=== PATIENT | female | born 1985 | race Caucasian/White ===

== ENCOUNTER 2017-01-07 18:21 | Emergency (ER) | payer OTHER ==
[~2017-01-07] VITALS: Ht 162.6 cm; Wt 63.9 kg
[~2017-01-07 18:21] MED LIST: ASCORBIC ACID500 M3 PO; BENZONATATE200 MG PO; IRON325 M1 PO; MULTIPLE VITAM1 EAC1 PO; Motrin PO; NAPROSYN500 MG PO; NEXIUM20 MG PO; NEXIUM40 MG PO; NICOTINE PATCH1 EAC2 TD; NORCO 7.5/321 TABLET PO; OPANA ER40 MG PO; OXYCODONE30 MG PO; PERCOCET 5/31 TABLET PO; PHENERGAN25 MG PR; POTASSIUM-9999 MG PO; PROAIR HFA8.5 GM IH; PROMETHAZINE HC25 M1 PO; Protonix PO; SOMA350 MG PO; ULTRAM50 MG PO; XANAX2 MG PO; ZOFRAN4 MG PO; Zofran PO
[2017-01-07 19:40] LABS: HEMATOCRIT 43.7 % (36.0-46.0); MCH 31.1 PG (29.0-34.0); MCHC 34.3 G/DL (30.0-36.0); MCV 90.5 FL (83-99); PLATELET COUNT 265 K/uL (156-360); RBC DIS.WIDTH-CV 11.7 % (11.8-14.6); RBC DIS.WIDTH-SD 38.7 % (39-53); RED BLOOD COUNT 4.83 M/uL (3.80-5.20); WHITE BLOOD COUNT 11.8 K/uL (4.1-10.2)
[2017-01-07 19:52] LABS: CHLORIDE 104 mEq/L (99-109); POTASSIUM 3.8 mEq/L (3.7-5.4); SODIUM 139 mEq/L (136-147)
[2017-01-07 19:55] LABS: GLUCOSE 101 mg/dL (70-99)
[2017-01-07 19:56] LABS: ANION GAP 11 MEQ/L (2-14)
[2017-01-07 19:57] LABS: TOTAL BILIRUBIN 1.4 mg/dL (0.0-1.0)
[2017-01-07 19:58] LABS: ALKALINE PHOSPHATASE 120 IU/L (3-129); GFR ESTIMATE (CALCULATED) > 59 mL/min/
[2017-01-07 19:59] LABS: UREA NITROGEN (BUN) 12 mg/dL (9-23)
[2017-01-07 20:02] LABS: LIPASE 145 U/L (1.0-51.0)
[2017-01-07 20:10] LABS: QUANTITATIVE HCG < 4.0 MIU/ML
[2017-01-07] MEDS ORDERED: ZOFRAN ODT4 MG PO (21:22)
[2017-01-07] MEDS ORDERED: NORCO 5/3251 TABLET PO (21:22)
[2017-01-07 21:32] VITALS: BP 116/46
== END 2017-01-07 21:32 | disposition home or self-care (01) ==
LOC: EME 18:21
DX: K85.90 Acute pancreatitis without necrosis or infection, unspecified (principal); K21.9 Gastro-esophageal reflux disease without esophagitis; J45.909 Unspecified asthma, uncomplicated; F17.200 Nicotine dependence, unspecified, uncomplicated
CPT/HCPCS: 74177; 80053; 81003; 83690; 84702; 85027; 99281; 99282; J1885; J2270; J2405; J7030

== ENCOUNTER 2017-05-09 19:30 | Emergency (ER) | payer OTHER ==
[~2017-05-09] VITALS: Ht 162.6 cm; Wt 69.8 kg
[~2017-05-09 19:30] MED LIST changes: +NORCO 5/3251 TABLET PO; +ZOFRAN ODT4 MG PO
[2017-05-09] MEDS ORDERED: FLEXERIL10 MG PO (22:45)
[2017-05-09 22:51] LABS: APPEARANCE SL.HAZY ((CLEAR)); BILIRUBIN NEGATIVE; BLOOD NEGATIVE; COLOR YELLOW ((YELLOW)); GLUCOSE (STRIP) NEGATIVE; KETONES NEGATIVE; LEUKOCYTES NEGATIVE; NITRITE NEGATIVE; PROTEIN (STRIP) NEGATIVE; SPECIFIC GRAVITY 1.006 (1.000-1.030); UROBILINOGEN 0.2 MG/DL (0.2-1.0)
[2017-05-09 22:58] LABS: BACTERIA NONE SEEN /HPF; EPITHELIAL CELLS RARE /HPF; MUCUS TRACE /LPF; RED BLOOD CELLS 0-5 /HPF (0-5); UCUL ADDED? NO; WHITE BLOOD CELLS 0-5 /HPF (0-5)
[2017-05-09 23:42] VITALS: BP 108/70
== END 2017-05-09 23:42 | disposition home or self-care (01) ==
LOC: EME 19:30
PROVIDERS: Nurse Practitioner Family
DX: M54.12 Radiculopathy, cervical region (principal); M54.6 Pain in thoracic spine; M62.838 Other muscle spasm; F17.200 Nicotine dependence, unspecified, uncomplicated; Z88.8 Allergy status to other drugs, medicaments and biological substances
CPT/HCPCS: 81003; 99281; 99284; J1885

== ENCOUNTER 2017-05-28 08:42 | Emergency (ER) | payer OTHER ==
[~2017-05-28] VITALS: Ht 162.6 cm; Wt 66.5 kg
[~2017-05-28 08:42] MED LIST changes: +FLEXERIL10 MG PO
[2017-05-28 11:26] VITALS: BP 112/76
== END 2017-05-28 11:26 | disposition home or self-care (01) ==
LOC: EME 08:42
DX: S16.1XXA Strain of muscle, fascia and tendon at neck level, initial encounter (principal); M54.12 Radiculopathy, cervical region; F17.200 Nicotine dependence, unspecified, uncomplicated; Z88.1 Allergy status to other antibiotic agents; Z88.8 Allergy status to other drugs, medicaments and biological substances

== ENCOUNTER 2017-10-05 00:08 | Emergency (ER) | payer OTHER ==
[~2017-10-05] VITALS: Ht 162.6 cm; Wt 59.7 kg
[2017-10-05 00:14] VITALS: BP 112/64
[2017-10-05 00:34] LABS: HEMATOCRIT 48.5 % (36.0-46.0); HEMOGLOBIN 16.9 G/DL (11.9-15.5); MCH 31.1 PG (29.0-34.0); MCHC 34.8 G/DL (30.0-36.0); MCV 89.2 FL (83-99); PLATELET COUNT 313 K/uL (156-360); RBC DIS.WIDTH-CV 13.1 % (11.8-14.6); RBC DIS.WIDTH-SD 42.5 % (39-53); RED BLOOD COUNT 5.44 M/uL (3.80-5.20); WHITE BLOOD COUNT 14.8 K/uL (4.1-10.2)
[2017-10-05 00:55] LABS: ALBUMIN 4.6 g/dL (3.2-4.8); CHLORIDE 104 mEq/L (99-109)
[2017-10-05 00:56] LABS: POTASSIUM 3.9 mEq/L (3.7-5.4); SODIUM 139 mEq/L (136-147)
[2017-10-05 00:58] LABS: GLUCOSE 106 mg/dL (70-99); TOTAL PROTEIN 7.4 g/dL (6.4-8.3)
[2017-10-05 01:00] LABS: TOTAL BILIRUBIN 0.4 mg/dL (0.0-1.0)
[2017-10-05 01:01] LABS: ALKALINE PHOSPHATASE 83 IU/L (3-129); CREATININE 0.7 mg/dL (0.6-1.3); GFR ESTIMATE (CALCULATED) > 59 mL/min/
[2017-10-05 01:03] LABS: AST (GOT) 25 IU/L (2-34); UREA NITROGEN (BUN) 17 mg/dL (9-23)
[2017-10-05 01:04] LABS: ALT (GPT) 49 IU/L (3-49)
[2017-10-05 01:12] LABS: QUANTITATIVE HCG < 4.0 MIU/ML
[2017-10-05] MEDS ORDERED: ZOFRAN ODT4 MG PO (02:18)
[2017-10-05] MEDS ORDERED: LIDODERM 5% P1 PATCH TD (02:18)
[2017-10-05 02:54] LABS: APPEARANCE SL.HAZY ((CLEAR)); BILIRUBIN NEGATIVE; BLOOD NEGATIVE; COLOR YELLOW ((YELLOW)); GLUCOSE (STRIP) NEGATIVE; KETONES 20; LEUKOCYTES NEGATIVE; NITRITE NEGATIVE; PROTEIN (STRIP) 30; SPECIFIC GRAVITY 1.025 (1.000-1.030)
[2017-10-05 02:56] LABS: BACTERIA NONE SEEN /HPF; EPITHELIAL CELLS 1+ /HPF; HYALINE CASTS 0-5 /LPF; MUCUS 3+ /LPF; RED BLOOD CELLS 0-5 /HPF (0-5); UCUL ADDED? NO; WHITE BLOOD CELLS 0-5 /HPF (0-5)
== END 2017-10-05 03:14 | disposition home or self-care (01) ==
LOC: EME 00:08
DX: F07.81 Postconcussional syndrome (principal); T14.8XXA Other injury of unspecified body region, initial encounter; V49.40XA Driver injured in collision with unspecified motor vehicles in traffic accident, initial encounter; Y92.410 Unspecified street and highway as the place of occurrence of the external cause; K21.9 Gastro-esophageal reflux disease without esophagitis; J45.909 Unspecified asthma, uncomplicated; F41.9 Anxiety disorder, unspecified; F17.200 Nicotine dependence, unspecified, uncomplicated; Z90.49 Acquired absence of other specified parts of digestive tract; Z88.1 Allergy status to other antibiotic agents; Z88.8 Allergy status to other drugs, medicaments and biological substances
CPT/HCPCS: 80053; 81003; 84702; 85027; 99281; 99283